=== PATIENT | male | born 1950 | race Caucasian/White ===

== ENCOUNTER 2016-11-01 15:16 | Emergency (ER) | payer MEDICARE, OTHER ==
[~2016-11-01] VITALS: Ht 180.3 cm; Wt 78.9 kg
[~2016-11-01 15:16] MED LIST: ADDE30TA PO; ASPI325T PO; CIPR750T10 PO; LEVO112T20 PO; SUBO8MIS SL; VITA100018 PO
[2016-11-01 15:27] VITALS: BP 124/87; PULSE 88; RESP 16; TEMP 98.2; O2SAT 94
[2016-11-01] MEDS ORDERED: ADDE30TA PO (15:41)
[2016-11-01] MEDS ORDERED: LEVO200T4 PO (15:41)
[2016-11-01] MEDS ORDERED: SUBO8MIS SL (15:41)
--- NOTE | 2016-11-01 16:05 | PD ---
HPI Chief Complaint: Cold / Flu Symptoms Time Seen by Provider: 16:05 Travel History International Travel<30 days: No Contact w/Intl Traveler<30days: No Traveled to known affect area: No History of Present Illness HPI 66-year-old male presents to the ED for evaluation less than 24-hour history of cough and clear rhinorrhea. Gradual onset. Patient denies fevers, chills headache, ear pain, sinus congestion, sore throat, chest pain, abdominal pain, nausea or vomiting. No treatment attempted at home. He did not try to call his primary provider. He states that he has not been sick in over 40 years and this is what caused him to seek treatment today. PFSH Past Medical History Arthritis: No Asthma: No Autoimmune Disease: No Blood Disorders: No Anxiety: Yes Depression: Yes Heart Rhythm Problems: No Cancer: No Cardiovascular Problems: Yes High Cholesterol: No Chemotherapy: No Chest Pain: Yes Congestive Heart Failure: No COPD: No Cerebrovascular Accident: No Diabetes: No Diminished Hearing: No Endocrine: No Genitourinary: Yes (STS FREQUENCY, NEEDS TO SEE A UROLOGIST) Headaches: No Hypertension: Yes Immune Disorder: No Kidney Stones: No Neurologic: No Psychiatric: Yes Reproductive: No Migraines: No Radiation Therapy: No Renal Failure: No Seizures: No Sickle Cell Disease: No Sleep Apnea: No Thyroid Disease: Yes Tetanus Vaccination: < 5 Years Influenza Vaccination: Yes PNEUMOCCOCAL Vaccine (Year): 2 Past Surgical History Abdominal Surgery: No AICD: No Arteriovenous Shunt: No Body Medical Devices: CHRONIC BACK PAIN Cardiac Surgery: No Ear Surgery: No Endocrine Surgery: No Genitourinary Surgery: No Gynecologic Surgery: No Insulin Pump: No Joint Replacement: No Oral Surgery: No Pacemaker: No Thoracic Surgery: No Other Surgery: Yes (carpal tunnel) Social History Alcohol Use: No Tobacco Use: No Substance Use: No Allergies-Medications (Allergen,Severity, Reaction): Coded Allergies: No Known Allergies (Verified , 11/01/16) Reported Meds & Prescriptions Reported Meds & Active Scripts Active Reported Levothyroxine (Levothyroxine Sodium) 200 Mcg Tab 92 Mcg PO DAILY Adderall (Amphetamine-Dextroamphetamine) 30 Mg Tab 30 Mg PO DAILY Avoid late evening doses. Space doses at least 4 to 6 hours if more than once/day dosing. Suboxone Sublingual Film (Buprenorphine-Naloxone Sublingual Film) 8-2 Mg Film 1 Film SL TID Unique ID number required: Review of Systems Except as stated in HPI: all other systems reviewed are Neg Physical Exam Narrative GENERAL: Well-nourished, well-developed nontoxic appearing white male in no acute distress. SKIN: Warm and dry. HEAD: Normocephalic. Atraumatic. EYES: No scleral icterus. No injection or drainage. PERRLA. EOMI. ENT: Pearly calderón tympanic membranes bilaterally. Nasal mucosa is moist. Oropharynx without erythema, edema or exudate. Cobblestoning of the posterior oropharynx. NECK: Supple, trachea midline. No JVD or lymphadenopathy. CARDIOVASCULAR: Regular rate and rhythm without murmurs, gallops, or rubs. No carotid bruits. 2+ DP and radial pulses bilaterally. RESPIRATORY: Breath sounds equal bilaterally. Maryjane mild end expiratory wheezing. No accessory muscle use. GASTROINTESTINAL: Abdomen soft, non-tender, nondistended. + Bowel sounds MUSCULOSKELETAL: No cyanosis, or edema. The patient is ambulatory and moves extremities spontaneously. BACK: Nontender without obvious deformity. No CVA tenderness. Data Data Last Documented VS Vital Signs Date Time Temp Pulse Resp B/P Pulse Ox O2 Delivery O2 Flow Rate FiO2 11/01/16 15:42 20 20 94 11/01/16 15:27 98.2 124/87 Orders MDM Medical Decision Making Medical Screen Exam Complete: Yes Emergency Medical Condition: Yes Differential Diagnosis Allergic rhinitis versus viral syndrome versus pneumonia versus other Narrative Course 66-year-old male presents to the ED for evaluation less than 24-hour history of cough and clear rhinorrhea. Gradual onset. Patient denies fevers, chills headache, ear pain, sinus congestion, sore throat, chest pain, abdominal pain, nausea or vomiting. No treatment attempted at home. He did not try to call his primary provider. He states that he has not been sick in over 40 years and this is what caused him to seek treatment today. Vitals reviewed. Physical exam reveals cobblestoning of the posterior oropharynx and mild expiratory wheezing. The patient requested a chest xray and this was ordered. However, during the course of treatment the patient stated that he had a other appointment and left AGAINST MEDICAL ADVICE. Diagnosis Primary Impression: Left against medical advice Disposition: 01 DISCHARGE HOME Condition: Stable Telma Barbour Nov 01, 2016 16:05
== END 2016-11-01 16:42 | disposition home or self-care (01) ==
LOC: PHEFT 15:16
DX: R05 Cough (principal); R06.2 Wheezing; I10 Essential (primary) hypertension
CPT/HCPCS: 99283

== ENCOUNTER 2016-11-09 14:13 | Inpatient (IN) | payer MEDICARE ==
[~2016-11-09] VITALS: Ht 180.3 cm; Wt 74.8 kg
[2016-11-09] VITALS (8 sets, daily range): BP systolic 94–129; BP diastolic 76–99; PULSE 88–95; RESP 14–18; TEMP 97.9–98.9; O2SAT 90–96
[~2016-11-09 14:13] MED LIST changes: -ASPI325T PO; -CIPR750T10 PO; -LEVO112T20 PO; +LEVO200T4 PO; -VITA100018 PO
--- NOTE | 2016-11-09 15:27 | PD ---
HPI Chief Complaint: Respiratory Symptoms Time Seen by Provider: 15:20 Travel History International Travel<30 days: No Contact w/Intl Traveler<30days: No Traveled to known affect area: No History of Present Illness HPI 6-year-old male says he been short of breath and very congested. He says he been sick for several days but the last 4 days he's really been feeling very weak and has been most of the time of the couch. He has never been diagnosed with COPD or pneumonia. He stopped smoking about 2 years ago. There is been no vomiting. He says he is coughing up some very phlegm. He is not aware of fever. PFSH Past Medical History Arthritis: No Asthma: No Autoimmune Disease: No Blood Disorders: No Anxiety: Yes Depression: Yes Heart Rhythm Problems: No Cancer: No Cardiovascular Problems: Yes High Cholesterol: No Chemotherapy: No Chest Pain: Yes Congestive Heart Failure: No COPD: No Cerebrovascular Accident: No Diabetes: No Diminished Hearing: No Endocrine: No Genitourinary: Yes (STS FREQUENCY, NEEDS TO SEE A UROLOGIST) Headaches: No Hypertension: Yes Immune Disorder: No Kidney Stones: No Neurologic: No Psychiatric: Yes Reproductive: No Migraines: No Radiation Therapy: No Renal Failure: No Seizures: No Sickle Cell Disease: No Sleep Apnea: No Thyroid Disease: Yes Tetanus Vaccination: < 5 Years Influenza Vaccination: Yes PNEUMOCCOCAL Vaccine (Year): 2 Past Surgical History Abdominal Surgery: No AICD: No Arteriovenous Shunt: No Body Medical Devices: CHRONIC BACK PAIN Cardiac Surgery: No Ear Surgery: No Endocrine Surgery: No Genitourinary Surgery: No Gynecologic Surgery: No Insulin Pump: No Joint Replacement: No Oral Surgery: No Pacemaker: No Thoracic Surgery: No Other Surgery: Yes (carpal tunnel) Social History Alcohol Use: No Tobacco Use: No (IN HIS 20'S) Substance Use: No Allergies-Medications (Allergen,Severity, Reaction): Coded Allergies: No Known Allergies (Verified , 11/09/16) Reported Meds & Prescriptions Reported Meds & Active Scripts Active Reported Levothyroxine (Levothyroxine Sodium) 200 Mcg Tab 92 Mcg PO DAILY Adderall (Amphetamine-Dextroamphetamine) 30 Mg Tab 30 Mg PO DAILY Avoid late evening doses. Space doses at least 4 to 6 hours if more than once/day dosing. Suboxone Sublingual Film (Buprenorphine-Naloxone Sublingual Film) 8-2 Mg Film 1 Film SL TID Unique ID number required: Review of Systems General / Constitutional: No: Fever, Chills Eyes: No: Diploplia, Blurred Vision HENT: No: Headaches Cardiovascular: No: Chest Pain or Discomfort Respiratory: Positive: Cough Gastrointestinal: No: Vomiting Genitourinary: No: Urgency, Frequency Skin: No Rash Neurologic: Positive: Weakness Endocrine: No: Heat Intolerance, Cold Intolerance Hematologic/Lymphatic: No: Easy Bruising Physical Exam Narrative GENERAL: Well-developed male SKIN: Focused skin assessment warm/dry. HEAD: Atraumatic. Normocephalic. EYES: Pupils equal and round. No scleral icterus. No injection or drainage. ENT: No nasal bleeding or discharge. Mucous membranes pink and moist. NECK: Trachea midline. No JVD. CARDIOVASCULAR: Regular rate and rhythm. No murmur appreciated. RESPIRATORY: There are bilateral inspiratory and expiratory wheezes GASTROINTESTINAL: Abdomen soft, non-tender, nondistended. Hepatic and splenic margins not palpable. MUSCULOSKELETAL: No obvious deformities. No clubbing. No cyanosis. No edema. NEUROLOGICAL: Awake and alert. No obvious cranial nerve deficits. Motor grossly within normal limits. Normal speech. PSYCHIATRIC: Appropriate mood and affect; insight and judgment normal. Data Data Last Documented VS Vital Signs Date Time Temp Pulse Resp B/P Pulse Ox O2 Delivery O2 Flow Rate FiO2 11/09/16 15:18 92 Nasal Cannula 2 11/09/16 14:37 97.9 95 18 126/99 Orders Complete Blood Count With Diff (11/09/16 15:15) Basic Metabolic Panel (Bmp) (11/09/16 15:15) Chest, Pa & Lat (11/09/16 15:15) Blood Culture (11/09/16 15:15) Iv Access Insert/Monitor (11/09/16 15:15) Ecg Monitoring (11/09/16 15:15) Oxygen Administration (11/09/16 15:15) Oximetry (11/09/16 15:15) Electrocardiogram (11/09/16 15:15) Sodium Chloride 0.9% Flush (Ns Flush) (11/09/16 15:30) Methylprednisolone So Succ Inj (Solumedr (11/09/16 15:30) Albuterol-Ipratropium Neb (Duoneb Neb) (11/09/16 15:30) Ceftriaxone Inj (Rocephin Inj) (11/09/16 15:30) Sodium Chlor 0.9% 1000 Ml Inj (Ns 1000 M (11/09/16 15:30) Labs Laboratory Tests Test 11/09/16 15:10 White Blood Count 8.3 TH/MM3 Red Blood Count 5.34 MIL/MM3 Hemoglobin 16.3 GM/DL Hematocrit 48.6 % Mean Corpuscular Volume 90.9 FL Mean Corpuscular Hemoglobin 30.5 PG Mean Corpuscular Hemoglobin 33.6 % Concent Red Cell Distribution Width 13.0 % Platelet Count 182 TH/MM3 Mean Platelet Volume 9.4 FL Neutrophils (%) (Auto) 69.5 % Lymphocytes (%) (Auto) 23.5 % Monocytes (%) (Auto) 5.9 % Eosinophils (%) (Auto) 0.6 % Basophils (%) (Auto) 0.5 % Neutrophils # (Auto) 5.9 TH/MM3 Lymphocytes # (Auto) 1.9 TH/MM3 Monocytes # (Auto) 0.5 TH/MM3 Eosinophils # (Auto) 0.0 TH/MM3 Basophils # (Auto) 0.0 TH/MM3 CBC Comment DIFF FINAL Differential Comment Sodium Level 138 MEQ/L Potassium Level 3.6 MEQ/L Chloride Level 104 MEQ/L Carbon Dioxide Level 24.0 MEQ/L Anion Gap 10 MEQ/L Blood Urea Nitrogen 28 MG/DL Creatinine 1.00 MG/DL Estimat Glomerular Filtration 75 ML/MIN Rate Random Glucose 110 MG/DL Calcium Level 8.6 MG/DL MDM Medical Decision Making Medical Screen Exam Complete: Yes Emergency Medical Condition: Yes Medical Record Reviewed: Yes Differential Diagnosis Differential includes pneumonia, COPD, Narrative Course X-ray is negative for pneumonia. Patient has been given 3 nebulizer treatments and has had a good response. Repeat examination shows the lungs to be fairly clear. Impression is acute bronchitis, suspect COPD Diagnosis Primary Impression: Acute bronchitis Qualified Code: J20.9 - Acute bronchitis, unspecified organism Additional Impression: Bronchospasm Scripts Albuterol 18 GM Inh (Ventolin Hfa 18 GM Inh)90 Mcg/Act Aer2 Puff INH Q6H PRN ( SHORTNESS OF BREATH) #1 INHALER Ref 0 Prov:Artis Toro MD 11/09/16 Prednisone 20 Mg Tab20 Mg PO DIRECTED #24 TAB Ref 0 Take 60 MG daily x 4 days, then 40 MG x 4 days, then 20 MG daily x 4 days. Prov:Artis Toro MD 11/09/16 Amoxicillin 500 Mg [id number] Mg PO TID #30 TAB Ref 0 Prov:Artis Toro MD 11/09/16 Disposition: 01 DISCHARGE HOME Condition: Stable Artis Toro MD Nov 09, 2016 15:27
[2016-11-09 15:30] LABS: AUTOMATED NEUTROPHIL # 5.9 TH/MM3 (1.8-7.7); BASOPHIL % 0.5 % (0.0-2.0); EOSINOPHIL % 0.6 % (0.0-4.0); HEMATOCRIT 48.6 % (39.0-51.0); HEMO FLAGS DIFF FINAL; LYMPH % 23.5 % (9.0-44.0); LYMPHOCYTE # 1.9 TH/MM3 (1.0-4.8); MEAN CELL VOLUME 90.9 FL (80.0-100.0); MEAN CORPUSCULAR HEMOGLOBIN 30.5 PG (27.0-34.0); MEAN CORPUSCULAR HGB CONC 33.6 % (32.0-36.0); MONO % 5.9 % (0.0-8.0); NEUT % 69.5 % (16.0-70.0); PLATELET COUNT 182 TH/MM3 (150-450); RED BLOOD COUNT 5.34 MIL/MM3 (4.50-5.90); WHITE BLOOD COUNT 8.3 TH/MM3 (4.0-11.0)
[2016-11-09] MEDS ORDERED: cefTRIAXone INJ 1,000 MG in SODIUM CHLORIDE 0.9% INJ 100 ML IV ONE (15:30)
[2016-11-09] MEDS ORDERED: SODIUM CHLORIDE 0.9% FLUSH 10 ML FLUSH IVF PRN (15:30)
[2016-11-09] MEDS ORDERED: methylPREDNISolone SOD SUCC 125 MG/2 ML VIAL IVP ONE (15:30)
[2016-11-09] MEDS: RESP: ALBUTEROL 2.5 MG/IPRATROPIUM 0.5 MG NEB (SCH) INH ×2 (15:32→15:33)
[2016-11-09 15:36] LABS: POTASSIUM 3.6 MEQ/L (3.5-5.1)
[2016-11-09] MEDS: SODIUM CHLOR 0.9% 1000 ML INJ 1,000 ML IV SCH (15:40)
--- NOTE | 2016-11-09 16:12 | RADHPO ---
EXAM DATE/TIME: 11/09/2016 15:24 [facility] COMPARISON: No previous studies available for comparison. INDICATIONS : Cough and congestion 2 weeks. MEDICAL HISTORY : Hypertension. SURGICAL HISTORY : None. ENCOUNTER: Initial ACUITY: 2 weeks PAIN SCORE: 0/10 LOCATION: Bilateral chest FINDINGS: PA and lateral views of the chest demonstrate the lungs to be symmetrically aerated without evidence of mass, infiltrate or effusion. The cardiomediastinal contours are unremarkable. Osseous structure s are intact. CONCLUSION: No acute disease. Gasper Guthrie MD on November 09, 2016 at 16:10 Board Certified Radiologist. This report was verified electronically.
[2016-11-09] MEDS ORDERED: PRED20 PO (16:29)
[2016-11-09] MEDS ORDERED: AMOX500T PO (16:29)
[2016-11-09] MEDS ORDERED: VENTAER INH (16:29)
--- NOTE | 2016-11-09 16:44 | HHI.HP ---
HPI Service [facility] Hospitalists Primary Care Physician Jose Albarran MD Admission Diagnosis hypoxia, bronchitis Chief Complaint: cough, weakness, wheezing Travel History International Travel<30 Days: No Contact w/Intl Traveler <30 Da: No Traveled to Known Affected Are: No History of Present Illness 66-year-old male with long hx of smoking presents for being short of breath and very congested for 2 weeks. He says he been sick for several days but the last 4 days he's really been feeling very weak and has been most of the time of the couch. He has never been diagnosed with COPD or pneumonia. He stopped smoking about 2 years ago, but prior to that smoked cigars for over 40 yrs. There is been no vomiting. He says he is coughing up some very thick, sticky phlegm. He is not aware of fever and denies chills. Oxygen sats have been in upper 80- low 90s in ER. Sats tend to drop when he is sleeping and improve after coughing when he is upright. Denies chest pain. Review of Systems Constitutional: COMPLAINS OF: Diaphoretic episodes, DENIES: Fatigue, Fever, Weight gain, Weight loss, Chills, Dizziness, Change in appetite, Night Sweats Endocrine: DENIES: Heat/cold intolerance, Polydipsia, Polyuria, Polyphagia Eyes: DENIES: Blurred vision, Diplopia, Eye inflammation, Eye pain, Vision loss , Photosensitivity, Double Vision Ears, nose, mouth, throat: DENIES: Tinnitus, Hearing loss, Vertigo, Nasal discharge, Oral lesions, Throat pain, Hoarseness, Ear Pain, Running Nose, Epistaxis, Sinus Pain, Toothache, Odynophagia Respiratory: COMPLAINS OF: Cough, Wheezing, Sputum production, Shortness of breath, DENIES: Apneas, Snoring, Hemoptysis Cardiovascular: DENIES: Chest pain, Palpitations, Syncope, Dyspnea on Exertion , PND, Lower Extremity Edema, Orthopnea, Claudication Gastrointestinal: DENIES: Abdominal pain, Black stools, Bloody stools, BRB per rectum, Constipation, Diarrhea, GERD, Nausea, Reflux, Vomiting, Difficulty Swallowing, Anorexia, See HPI Musculoskeletal: COMPLAINS OF: Joint pain, Back pain Integumentary: DENIES: Abnormal pigmentation, Nail changes, Pruritus, Rash Hematologic/lymphatic: DENIES: Bruising, Lymphadenopathy Immunologic/allergic: DENIES: Eczema, Urticaria Neurologic: DENIES: Abnormal gait, Headache, Localized weakness, Paresthesias, Seizures, Speech Problems, Tremor, Poor Balance Psychiatric: DENIES: Anxiety, Confusion, Mood changes, Depression, Hallucinations, Agitation, Suicidal Ideation, Homicidal Ideation, Delusions, History of Bipolar, History of Schizophrenia Past Family Social History Past Medical History Anxiety Lumbar facet syndrome Post laminectomy syndrome HTN Hyperlipidemia HYpothyroidism Major Depression Opioid dependence Past Surgical History L4/5 discectomy 1993 paravertebral ablation Varicose vein ligation Decompression neuroplasty Reported Medications Levothyroxine (Levothyroxine Sodium) 200 Mcg Tab 92 Mcg PO DAILY Adderall (Amphetamine-Dextroamphetamine) 30 Mg Tab 30 Mg PO DAILY Avoid late evening doses. Space doses at least 4 to 6 hours if more than once/day dosing. Suboxone Sublingual Film (Buprenorphine-Naloxone Sublingual Film) 8-2 Mg Film 1 Film SL TID Unique ID number required: Allergies: Coded Allergies: No Known Allergies (Verified , 11/09/16) Family History nc Social History No tobacco in 2 yrs, smoked cigars for 40yrs prior Denies EtOH or illicit drug use. Retired. 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 Physical Exam Vital Signs Vital Signs Date Time Temp Pulse Resp B/P Pulse Ox O2 Delivery O2 Flow Rate FiO2 11/09/16 15:18 92 Nasal Cannula 2 11/09/16 15:18 92 Nasal Cannula 2 11/09/16 15:03 92 Nasal Cannula 2 11/09/16 14:48 90 Room Air 11/09/16 14:37 97.9 95 18 126/99 93 Physical Exam GENERAL: This is a well-nourished, well-developed patient, in no apparent distress. Occasional deep cough noted. cooperative with exam. SKIN: No ecchymoses. Cool and dry. HEAD: Atraumatic. Normocephalic. No temporal or scalp tenderness. EYES: Pupils equal round and reactive. Extraocular motions intact. No scleral icterus. No injection or drainage. ENT: Nose without bleeding, purulent drainage or septal hematoma. Airway patent. NECK: Trachea midline. No JVD or lymphadenopathy. Supple, nontender, no meningeal signs. CARDIOVASCULAR: Regular rate and rhythm without murmurs, gallops, or rubs. RESPIRATORY: Occas expiratory wheeze with bronchovesicular breath sounds. Fair air movement. No fine crackles. GASTROINTESTINAL: Abdomen soft, non-tender, nondistended. No hepato-splenomegaly , or palpable masses. No guarding. MUSCULOSKELETAL: Extremities without clubbing, cyanosis, or edema. No joint tenderness, effusion, or edema noted. No calf tenderness. NEUROLOGICAL: Awake and alert. Cranial nerves II through XII intact. Motor and sensory grossly within normal limits. Five out of 5 muscle strength in all muscle groups. Normal speech. Laboratory Laboratory Tests Test 11/09/16 15:10 White Blood Count 8.3 Red Blood Count 5.34 Hemoglobin 16.3 Hematocrit 48.6 Mean Corpuscular Volume 90.9 Mean Corpuscular Hemoglobin 30.5 Mean Corpuscular Hemoglobin 33.6 Concent Red Cell Distribution Width 13.0 Platelet Count 182 Mean Platelet Volume 9.4 Neutrophils (%) (Auto) 69.5 Lymphocytes (%) (Auto) 23.5 Monocytes (%) (Auto) 5.9 Eosinophils (%) (Auto) 0.6 Basophils (%) (Auto) 0.5 Neutrophils # (Auto) 5.9 Lymphocytes # (Auto) 1.9 Monocytes # (Auto) 0.5 Eosinophils # (Auto) 0.0 Basophils # (Auto) 0.0 CBC Comment DIFF FINAL Differential Comment Sodium Level 138 Potassium Level 3.6 Chloride Level 104 Carbon Dioxide Level 24.0 Anion Gap 10 Blood Urea Nitrogen 28 Creatinine 1.00 Estimat Glomerular Filtration 75 Rate Random Glucose 110 Calcium Level 8.6 Date/Time Procedure Status Source Growth 11/09/16 15:20 Aerobic Blood Culture Received Blood Peripheral Pending 11/09/16 15:20 Anaerobic Blood Culture Received Blood Peripheral Pending Result Diagram: 11/09/16 1510 11/09/16 1510 Imaging Last 72 hours Impressions Chest X-Ray 11/09/16 1515 Signed Impressions: Service Date/Time: October 15:24 - CONCLUSION: No acute disease. Gasper Guthrie MD Assessment and Plan Problem List: (1) Acute bronchitis Status: Acute Plan: Possibly early pneumonia. Will provide abx, steroids, neb, supplemental oxygen. Likely has some underlying copd and will need spirometry as outpt. (2) Hypoxia Status: Acute Plan: as noted above (3) Bronchospasm Status: Acute Plan: as above (4) Chronic pain Status: Chronic Plan: continue medications (5) Hypothyroidism Status: Chronic Plan: continue med. TSH 2.5 in September 2016 Code Status full Discussed Condition With Pt and ER MD Problem Qualifiers (1) Acute bronchitis: Qualified Code: J20.9 - Acute bronchitis, unspecified organism Lupillo Yan MD PhD Nov 09, 2016 16:44
[2016-11-09] MEDS: AZITHROMYCIN INJ 500 MG in SODIUM CHLOR 0.9% 250 ML INJ 250 ML IV SCH (17:12)
[2016-11-09] MEDS ORDERED: [UNRECOGNIZED DRUG - OTHER] SL SCH (18:00)
[2016-11-09] MEDS: RESP: ALBUTEROL 2.5 MG/IPRATROPIUM 0.5 MG NEB (SCH) NEB (20:20)
[2016-11-09] MEDS: methylPREDNISolone SOD SUCC 40 MG/1 ML VIAL IV PUSH SCH (22:18)
[2016-11-10] VITALS (7 sets, daily range): BP systolic 107–129; BP diastolic 70–92; PULSE 72–102; RESP 18–20; TEMP 98–98.7; O2SAT 92–98
[2016-11-10] MEDS: TEMAZEPAM 15 MG CAP PO PRN ×2 (00:40→21:12)
[2016-11-10] MEDS: RESP: ALBUTEROL 2.5 MG/IPRATROPIUM 0.5 MG NEB (SCH) NEB ×4 (03:35→21:04)
[2016-11-10] MEDS: methylPREDNISolone SOD SUCC 40 MG/1 ML VIAL IV PUSH SCH ×3 (06:03→21:12)
[2016-11-10] MEDS: LEVOTHYROXINE SODIUM 125 MCG TAB PO SCH (06:03)
--- NOTE | 2016-11-10 06:16 | HHI.PR ---
Subjective Remarks Still with significant cough paroxysms. Slept okay. Still feels weak. Objective Vitals Vital Signs Date Time Temp Pulse Resp B/P Pulse Ox O2 Delivery O2 Flow Rate FiO2 11/10/16 00:00 98.7 80 18 129/92 96 11/09/16 20:21 94 Nasal Cannula 3.00 11/09/16 20:00 98.9 88 16 127/86 96 11/09/16 18:09 98.8 88 14 94/76 94 Nasal Cannula 2 11/09/16 16:36 93 Nasal Cannula 2 11/09/16 16:36 95 16 129/91 90 Room Air 11/09/16 15:55 95 21 11/09/16 15:18 92 Nasal Cannula 2 11/09/16 15:18 92 Nasal Cannula 2 11/09/16 15:03 92 Nasal Cannula 2 11/09/16 14:48 90 Room Air 11/09/16 14:37 97.9 95 18 126/99 93 11/09/16 11/09/16 11/10/16 15:00 23:00 07:00 Intake Total 340 ml Balance 340 ml Intake Oral 340 ml # Voids 1 # Bowel Movements 0 GENERAL: Awake and alert. Alert and oriented. Cooperative with exam. SKIN: Warm and dry. HEAD: Normocephalic. Extraocular motions intact. EYES: No scleral icterus. No injection or drainage. NECK: Supple, trachea midline. No JVD or lymphadenopathy. CARDIOVASCULAR: Regular rate and rhythm without murmurs, gallops, or rubs. RESPIRATORY: Breath sounds equal bilaterally and less wheezing is noted this morning. Good air movement. Coarse breath sounds at the bases. No accessory muscle use. GASTROINTESTINAL: Abdomen soft, non-tender, nondistended. MUSCULOSKELETAL: No cyanosis, or edema. BACK: Nontender without obvious deformity. No CVA tenderness. Result Diagram: 11/09/16 1510 11/09/16 1510 Imaging Last 72 hours Impressions Chest X-Ray 11/09/16 151 Signed Impressions: Service Date/Time: October 15:24 - CONCLUSION: No acute disease. Gasper Guthrie MD Urinary Catheter: No Vascular Central Line Catheter: No A/P Problem List: (1) Acute bronchitis Status: Acute Plan: Possibly early pneumonia. Will provide abx, steroids, neb, supplemental oxygen. Likely has some underlying copd and will need spirometry as outpt. Patient still quite weak per his report. We'll see how he progresses today and possible discharge home later today. (2) Hypoxia Status: Acute Plan: as noted above Check oxygen prequalification walk test. (3) Bronchospasm Status: Acute Plan: as above Much improved this morning. (4) Chronic pain Status: Chronic Plan: continue medications Patient reports he is not actually taken his Suboxone in 4 days now. Reports pain is tolerable. (5) Hypothyroidism Status: Chronic Plan: continue med. TSH 2.5 in September 2016 Discharge Planning Possibly discharge home later today depending on how his symptoms do. Problem Qualifiers (1) Acute bronchitis: Qualified Code: J20.9 - Acute bronchitis, unspecified organism Lupillo Yan MD PhD Nov 10, 2016 06:16
[2016-11-10] MEDS: SODIUM CHLOR 0.9% 1000 ML INJ 1,000 ML IV SCH ×2 (07:30→16:21)
[2016-11-10] MEDS: DEXTROAMPHETAMINE/AMPHETAMINE 30 MG TAB PO SCH (09:10)
[2016-11-10] MEDS ORDERED: KETOROLAC TROMETHAMINE 30 MG/ML (IVP) VIAL IV PUSH ONE ×2 (09:15→23:15)
[2016-11-10] MEDS ORDERED: PNEUMOCOCCAL POLYVALENT INJ 25 MCG/0.5 ML SYR IM ONE (10:00)
[2016-11-10] MEDS ORDERED: INFLUENZA VIRUS VACCINE (QUADRIVALENT) 0.5 ML SYR IM ONE (10:00)
[2016-11-10] MEDS ORDERED: cefTRIAXone INJ 1,000 MG in SODIUM CHLORIDE 0.9% INJ 100 ML IV SCH (16:00)
[2016-11-10] MEDS: AZITHROMYCIN INJ 500 MG in SODIUM CHLOR 0.9% 250 ML INJ 250 ML IV SCH (16:28)
--- NOTE | 2016-11-10 20:23 | EKG ---
Date Performed: 11/09/2016 Time Performed: 16:24:46 PTAGE: 66 years EKG: Sinus rhythm with PVC(s) Right bundle branch block Inferior/lateral ST-T changes are nonspecific Compared to the previous tracing, the Right bundle branch block is new. ST changes are new, which may be from the Rig ht bundle branch block but cannot exclude ischemia. Abnormal ECG PREVIOUS TRACING : 01/15/2011 17.31 DOCTOR: Joe Ramirez Interpretating Date/Time 11/10/2016 20:21:54
[2016-11-11] VITALS: BP 119/80; PULSE 82; RESP 18; TEMP 98; O2SAT 98
[2016-11-11] MEDS: SODIUM CHLOR 0.9% 1000 ML INJ 1,000 ML IV SCH ×2 (01:00→09:19)
[2016-11-11] MEDS: RESP: ALBUTEROL 2.5 MG/IPRATROPIUM 0.5 MG NEB (SCH) NEB ×2 (03:09→09:19)
[2016-11-11] MEDS: LEVOTHYROXINE SODIUM 125 MCG TAB PO SCH (05:12)
[2016-11-11] MEDS: methylPREDNISolone SOD SUCC 40 MG/1 ML VIAL IV PUSH SCH ×2 (05:12→12:38)
[2016-11-11 08:00] VITALS: BP 121/78; PULSE 79; RESP 20; TEMP 97.3; O2SAT 94
[2016-11-11] MEDS ORDERED: AZITHROMYCIN 250 MG TAB PO SCH (09:00)
[2016-11-11] MEDS: DEXTROAMPHETAMINE/AMPHETAMINE 30 MG TAB PO SCH (09:19)
[2016-11-11 09:20] VITALS: O2SAT 95
[2016-11-11] MEDS ORDERED: AMPH1TAB67 PO (09:22)
--- NOTE | 2016-11-11 09:28 | HHI.PR ---
Subjective Remarks Patient states does not feel well but can not elaborate on it breathing he says is about the same and really nothing has helped spine pain . Patient has suboxone at home and is unable to get it as it is locked away and [facility] does not have it available we tried IV toradol which helped a little. Clinically patient passed oxygen walk test with oxygen sat at 95 % ,i will obtain cbc and bmp to make sure they are ok has been ambulating to bathroom and in [address] and does not want to go to SNF. I will ask case management to arrange for nebulizer . Possible discharge later today. Objective Vitals GENERAL: SKIN: Warm and dry. HEAD: Atraumatic. Normocephalic. EYES: Pupils equal and round. No scleral icterus. No injection or drainage. ENT: No nasal bleeding or discharge. Mucous membranes pink and moist. NECK: Trachea midline. No JVD. CARDIOVASCULAR: Regular rate and rhythm. RESPIRATORY: No accessory muscle use. Clear to auscultation. Breath sounds equal bilaterally. GASTROINTESTINAL: Abdomen soft, non-tender, nondistended. Hepatic and splenic margins not palpable. MUSCULOSKELETAL: Extremities without clubbing, cyanosis, or edema. No obvious deformities. NEUROLOGICAL: Awake and alert. No obvious cranial nerve deficits. Motor grossly within normal limits. Five out of 5 muscle strength in the arms and legs. Normal speech. PSYCHIATRIC: Appropriate mood and affect; insight and judgment normal. Vital Signs Date Time Temp Pulse Resp B/P Pulse Ox O2 Delivery O2 Flow Rate FiO2 11/11/16 09:20 95 21 11/11/16 08:00 97.3 79 20 121/78 94 11/11/16 00:00 98.0 82 18 119/80 98 11/10/16 21:05 94 21 11/10/16 20:00 98.0 87 18 107/70 98 11/10/16 16:00 98.7 84 18 113/71 95 11/10/16 12:00 98.1 102 20 125/79 96 11/10/16 09:31 93 Nasal Cannula 2.00 11/10/16 11/10/16 11/11/16 15:00 23:00 07:00 Intake Total 550 ml 240 ml Output Total 725 ml 1000 ml Balance -175 ml -760 ml Intake Oral 550 ml 240 ml Output Urine Total 725 ml 1000 ml # Bowel Movements 0 Result Diagram: 11/09/16 1510 11/09/16 1510 Imaging Last 72 hours Impressions Chest X-Ray 11/09/16 1515 Signed Impressions: Service Date/Time: October 15:24 - CONCLUSION: No acute disease. Gasper Guthrie MD A/P Problem List: (1) Acute bronchitis Status: Acute Plan: Possibly early pneumonia. Will provide abx, steroids, neb, supplemental oxygen. Likely has some underlying copd and will need spirometry as outpt. Patient still quite weak per his report. We'll see how he progresses today and obtain lab work discharge later today. (2) Hypoxia Status: Acute Plan: as noted above Check oxygen prequalification walk test. walk test 95% (3) Bronchospasm Status: Acute Plan: as above Much improved this morning. (4) Chronic pain Status: Chronic Plan: continue medications Patient reports he is not actually taken his Suboxone in 4 days now. Reports pain is tolerable but did want toradol IV (5) Hypothyroidism Status: Chronic Plan: continue med. TSH 2.5 in September 2016 Discharge Planning Possibly discharge home later today depending on lab work and ability to get nebulizer Problem Qualifiers (1) Acute bronchitis: Qualified Code: J20.9 - Acute bronchitis, unspecified organism Dell Hathaway MD Nov 11, 2016 09:28
[2016-11-11] MEDS ORDERED: IPRASOL NEB (09:48)
[2016-11-11] MEDS ORDERED: AZIT250T3 PO (09:48)
[2016-11-11 09:50] LABS: BASOPHIL # 0.1 TH/MM3 (0-0.2); BASOPHIL % 0.7 % (0.0-2.0); HEMATOCRIT 38.9 % (39.0-51.0); HEMO FLAGS DIFF FINAL; LYMPH % 10.7 % (9.0-44.0); LYMPHOCYTE # 1.2 TH/MM3 (1.0-4.8); MEAN CELL VOLUME 91.1 FL (80.0-100.0); MEAN CORPUSCULAR HEMOGLOBIN 29.9 PG (27.0-34.0); MEAN CORPUSCULAR HGB CONC 32.8 % (32.0-36.0); MONO % 1.2 % (0.0-8.0); NEUT % 87.4 % (16.0-70.0); PLATELET COUNT 149 TH/MM3 (150-450); RED BLOOD COUNT 4.27 MIL/MM3 (4.50-5.90); RED CELL DISTRIBUTION WIDTH 13.4 % (11.6-17.2); WHITE BLOOD COUNT 11.4 TH/MM3 (4.0-11.0)
[2016-11-11] MEDS ORDERED: CEFT500T3 PO (09:51)
--- NOTE | 2016-11-11 09:59 | HHI.FF ---
Face to Face Verification Diagnosis: (1) Acute bronchitis Physical Therapy Order: Improve ambulation Home Health Nursing Order: Medical education I have seen patient Don Hernandez on 11/11/16. My clinical findings support the need for the requested home health care services because: Patient has SOB Deconditioned w/ increased weakness I certify that my clinical findings support that this patient is homebound because: Hx COPD- exertion dyspnea/weakness instructions on nebulizer unit dose every 8 hours Dell Hathaway MD Nov 11, 2016 09:59
[2016-11-11 10:24] LABS: POTASSIUM 3.5 MEQ/L (3.5-5.1)
[2016-11-11 10:26] LABS: BICARBONATE 22.8 MEQ/L (21.0-32.0)
[2016-11-11] MEDS ORDERED: NEBULIZER1 MI1 FACE.MASK (11:53)
[2016-11-11 12:00] VITALS: BP 130/78; PULSE 86; RESP 20; TEMP 97.7; O2SAT 98
[2016-11-11] MEDS ORDERED: cefTRIAXone INJ 1,000 MG in SODIUM CHLORIDE 0.9% INJ 100 ML IV SCH (12:30)
--- NOTE | 2016-11-11 16:10 | HHI.DS ---
Discharge Summary Admission Date Nov 10, 2016 at 09:11 Admitting Diagnosis hypoxia, bronchitis (1) Acute bronchitis Diagnosis: Principal (2) Hypoxia Diagnosis: Principal (3) Bronchospasm Diagnosis: Principal (4) Chronic pain Diagnosis: Secondary (5) Hypothyroidism Diagnosis: Secondary Brief History 66-year-old male with long hx of smoking presents for being short of breath and very congested for 2 weeks. He says he been sick for several days but the last 4 days he's really been feeling very weak and has been most of the time of the couch. He has never been diagnosed with COPD or pneumonia. He stopped smoking about 2 years ago, but prior to that smoked cigars for over 40 yrs. There is been no vomiting. He says he is coughing up some very thick, sticky phlegm. He is not aware of fever and denies chills. Oxygen sats have been in upper 80- low 90s in ER. Sats tend to drop when he is sleeping and improve after coughing when he is upright. Denies chest pain. CBC/BMP: 11/11/16 0942 11/11/16 0942 Significant Findings Laboratory Tests Test 11/09/16 11/11/16 15:10 09:42 Blood Urea Nitrogen 28 MG/DL (7-18) 26 MG/DL (7-18) Estimat Glomerular Filtration 75 ML/MIN (>89) Rate Random Glucose 110 MG/DL 158 MG/DL (74-106) (74-106) White Blood Count 11.4 TH/MM3 (4.0-11.0) Red Blood Count 4.27 MIL/MM3 (4.50-5.90) Hemoglobin 12.8 GM/DL (13.0-17.0) Hematocrit 38.9 % (39.0-51.0) Platelet Count 149 TH/MM3 (150-450) Neutrophils (%) (Auto) 87.4 % (16.0-70.0) Neutrophils # (Auto) 10.0 TH/MM3 (1.8-7.7) Chloride Level 111 MEQ/L (98-107) Calcium Level 7.8 MG/DL (8.5-10.1) PE at Discharge GENERAL: SKIN: Warm and dry. HEAD: Atraumatic. Normocephalic. EYES: Pupils equal and round. No scleral icterus. No injection or drainage. ENT: No nasal bleeding or discharge. Mucous membranes pink and moist. NECK: Trachea midline. No JVD. CARDIOVASCULAR: Regular rate and rhythm. RESPIRATORY: No accessory muscle use. Clear to auscultation. Breath sounds equal bilaterally. GASTROINTESTINAL: Abdomen soft, non-tender, nondistended. Hepatic and splenic margins not palpable. MUSCULOSKELETAL: Extremities without clubbing, cyanosis, or edema. No obvious deformities. NEUROLOGICAL: Awake and alert. No obvious cranial nerve deficits. Motor grossly within normal limits. Five out of 5 muscle strength in the arms and legs. Normal speech. PSYCHIATRIC: Appropriate mood and affect; insight and judgment normal. Hospital Course Patient admitted chest xray no significant infiltrate probable bronchitis , patient was hypoxia and was started on IV steroids ,rocephin and zithromax and nebulizer treatment and clinically improved patient has chronic pain and continued to complain of that was on suboxone at home and was not available at hospital nor could anyone get his medication at home we did give him toradol IV times 2 with some improvement . Patient discharged on po prednisone 20 for 1 week ,zithromax 500 for 1 week cefzil 500 bid for 1 week and duonebulizer and nebulizer machine to be delievered to his house. Patient did not want home health or rehab and will follow up with his PCP next week. Medications were directly sent to [facility] via [facility] and [facility] was to fax meds to [facility] in case they were closed when he was able to pick them up. Pt Condition on Discharge: Stable Discharge Disposition: Disch w/ Home Health Serv Discharge Instructions DIET: Follow Instructions for: Heart Healthy Diet Activities you can perform: Regular-No Restrictions New Medications: Cefuroxime (Ceftin) 500 Mg Tab 500 MG PO BID Infection #14 Ref 0 TAB Nebulizer (Nebulizer) 1 Mis Mis 1 EA FACE.MASK Q8HR NEB Breathing Treatment #1 Ref 0 EA Azithromycin (Azithromycin) 250 Mg Tab 500 MG PO DAILY Cough #7 TAB Ipratropium-Albuterol Neb (Duoneb) 0.5-2.5 Mg/3 Ml Neb 1 AMPULE NEB Q6HR NEB Cough Days 7 ML Continued Medications: Albuterol 18 GM Inh (Ventolin Hfa 18 GM Inh) 90 Mcg/Act Aer 2 PUFF INH Q6H PRN SHORTNESS OF BREATH #1 Ref 0 INHALER Amphetamine-Dextroamphetamine (Amphetamine-Dextroamphetamine) 30 Mg Tab 30 MG PO BID Avoid late evening doses. Space doses at least 4 to 6 hours if more than once/day dosing. Hyperactivity Control #60 Ref 0 TAB Buprenorphine-Naloxone Sublingual Film (Suboxone Sublingual Film) 8-2 Mg Film 1 FILM SL TID Unique ID number required: FILM Levothyroxine (Levothyroxine) 200 Mcg Tab 92 MCG PO DAILY Thyroid #30 Ref 0 TAB Prednisone (Prednisone) 20 Mg Tab 20 MG PO DIRECTED Take 60 MG daily x 4 days, then 40 MG x 4 days, then 20 MG daily x 4 days. #24 Ref 0 TAB Discontinued Medications: Amoxicillin (Amoxicillin) 500 Mg Tab 500 MG PO TID Infection #30 Ref 0 TAB Amphetamine-Dextroamphetamine (Adderall) 30 Mg Tab 30 MG PO DAILY Avoid late evening doses. Space doses at least 4 to 6 hours if more than once/day dosing. Hyperactivity Control #30 Ref 0 TAB Additional Information repeayt labs showed slight elevation WBC 11 and glucose related to him being on steroids Dell Hathaway MD Nov 11, 2016 16:09
== END 2016-11-11 15:00 | disposition home or self-care (01) | DRG 202 ==
LOC: PHED 14:13 → PHEDA 16:38 → PH3B 18:42 → OBSVTOIN 11-10 09:11
PROVIDERS: ADMIT Family Medicine; ATTEND Family Medicine
DX: J20.9 Acute bronchitis, unspecified (principal); J44.0 Chronic obstructive pulmonary disease with (acute) lower respiratory infection; E03.9 Hypothyroidism, unspecified; G89.29 Other chronic pain; R09.02 Hypoxemia; E78.5 Hyperlipidemia, unspecified; I10 Essential (primary) hypertension; Z87.891 Personal history of nicotine dependence; Z23 Encounter for immunization
CPT/HCPCS: 71020; 80048; 85025; 87040; 90471; 90686; 90732; 93005; 94620; 94640; 94664; 96365; 96375; G0008; G0009; G0378; J0456; J0696; J1885; J2920; J2930; J7030; J7050; Q2038

== ENCOUNTER 2017-03-12 23:28 | Emergency (ER) | payer MEDICARE ==
[~2017-03-12] VITALS: Ht 180.3 cm; Wt 75.6 kg
[~2017-03-12 23:28] MED LIST changes: -ADDE30TA PO; +AMPH1TAB67 PO; +AZIT250T3 PO; +CEFT500T3 PO; +IPRASOL NEB; +NEBULIZER1 MI1 FACE.MASK; +PRED20 PO; +VENTAER INH
[2017-03-12 23:36] VITALS: BP 191/98; PULSE 81; RESP 12; TEMP 97.9; O2SAT 97
[2017-03-13] MEDS ORDERED: PROPARACAINE HCL 0.5% OPHT SOLN 15 ML BTL LEFT EYE ONE (00:15)
--- NOTE | 2017-03-13 01:04 | PD ---
HPI Chief Complaint: Eye Problems/Injury Time Seen by Provider: 00:00 Travel History International Travel<30 days: No Contact w/Intl Traveler<30days: No Traveled to known affect area: No History of Present Illness HPI The patient is a 66-year-old male that around 7:30 began experiencing a foreign body sensation in his left eye. He states he feels it temporarily and underneath the upper lip. 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 He denies rubbing his eye but did wash it out. 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 PFSH Past Medical History Arthritis: No Asthma: No Autoimmune Disease: No Blood Disorders: No Anxiety: Yes Depression: Yes Heart Rhythm Problems: No Cancer: No Cardiovascular Problems: Yes High Cholesterol: No Chemotherapy: No Chest Pain: Yes Congestive Heart Failure: No COPD: No Cerebrovascular Accident: No Diabetes: No Diminished Hearing: No Endocrine: No Genitourinary: Yes (STS FREQUENCY, NEEDS TO SEE A UROLOGIST) Headaches: No Hypertension: Yes Immune Disorder: No Kidney Stones: No Neurologic: No Psychiatric: Yes Reproductive: No Migraines: No Radiation Therapy: No Renal Failure: No Seizures: No Sickle Cell Disease: No Sleep Apnea: No Thyroid Disease: Yes PNEUMOCCOCAL Vaccine (Year): 2 Past Surgical History Abdominal Surgery: No AICD: No Arteriovenous Shunt: No Body Medical Devices: CHRONIC BACK PAIN Cardiac Surgery: No Ear Surgery: No Endocrine Surgery: No Genitourinary Surgery: No Gynecologic Surgery: No Insulin Pump: No Joint Replacement: No Oral Surgery: No Pacemaker: No Thoracic Surgery: No Other Surgery: Yes (carpal tunnel) Social History Alcohol Use: No Tobacco Use: No (smokes a cigar every month ) Substance Use: No Allergies-Medications (Allergen,Severity, Reaction): Coded Allergies: No Known Allergies (Verified , 03/12/17) Reported Meds & Prescriptions Reported Meds & Active Scripts Active Reported Amphetamine-Dextroamphetamine 30 Mg Tab 30 Mg PO BID Avoid late evening doses. Space doses at least 4 to 6 hours if more than once/day dosing. Levothyroxine (Levothyroxine Sodium) 200 Mcg Tab 92 Mcg PO DAILY Suboxone Sublingual Film (Buprenorphine-Naloxone Sublingual Film) 8-2 Mg Film 1 Film SL TID Unique ID number required: Review of Systems Except as stated in HPI: all other systems reviewed are Neg Physical Exam Narrative GENERAL: The patient is alert, oriented 3 and slight apparent distress with his left eye discomfort. SKIN: Focused skin assessment warm/dry. HEAD: Atraumatic. Normocephalic. EYES: Pupils equal and round. No scleral icterus. No injection or drainage in the right eye. The visual acuity is 20/30 in the left eye and 20 over 20 in the right eye. The left eye has conjunctival injection. There is a clear drainage from the left eye. The right eye has no injection. Eversions of lid/ tarsal plate reveals no foreign body under the upper eyelid and no foreign body under the lower eyelid. For seen staining reveals no corneal uptake. The pupils are 3 mm bilaterally and react to light. ENT: No nasal bleeding or discharge. Mucous membranes pink and moist. NECK: Trachea midline. No JVD. CARDIOVASCULAR: Regular rate and rhythm. No murmur appreciated. RESPIRATORY: No accessory muscle use. Clear to auscultation. Breath sounds equal bilaterally. GASTROINTESTINAL: Abdomen soft, non-tender, nondistended. Hepatic and splenic margins not palpable. MUSCULOSKELETAL: No obvious deformities. No clubbing. No cyanosis. No edema. NEUROLOGICAL: Awake and alert. No obvious cranial nerve deficits. Motor grossly within normal limits. Normal speech. PSYCHIATRIC: Appropriate mood and affect; insight and judgment normal. Data Data Last Documented VS Vital Signs Date Time Temp Pulse Resp B/P (MAP) Pulse Ox O2 Delivery O2 Flow Rate FiO2 03/12/17 23:36 97.9 81 12 191/98 (129) 97 Orders Orders Proparacaine 0.5% Opth Soln (Alcaine 0.5 (03/13/17 00:15) [facility] Medical Decision Making Medical Screen Exam Complete: Yes Emergency Medical Condition: Yes Medical Record Reviewed: Yes Differential Diagnosis Corneal abrasion, foreign body left eye, retinal burn from eclipse, retinal burn from weldingunlikely Narrative Course It is now 1:46 AM and the patient notices that the proparacaine is wearing off and he has this same sensation on the temporal portion of the upper lid. I went again everted lid/tarsal plate and no foreign body seen. No corneal abrasion was noted. The patient will need to see an it technician later on today. He is a [facility] patient and should have no problem seeing it technician. Diagnosis Primary Impression: Sensation of foreign body in eye Additional Instructions: As we discussed, follow-up with [facility] ophthalmology later on today. Call around 9:00 to set up that appointment. Disposition: 01 DISCHARGE HOME Condition: Stable Adrian Chavarria MD Mar 13, 2017 01:04
== END 2017-03-13 02:02 | disposition home or self-care (01) ==
LOC: PHED 23:28
DX: H57.8 Other specified disorders of eye and adnexa (principal)
CPT/HCPCS: 99283